=== PATIENT | male | born 1965 | race African-American/Black ===

== ENCOUNTER 2018-07-12 09:44 | Emergency (ER) | payer MEDICAID, OTHER ==
[2018-07-12 10:44] LABS: Bilirubin Moderate (Negative); Blood, Urine Moderate (Negative); Clarity TURBID (Clear); Glucose, Urine (Dipstick) Negative (Negative); Leukocyte Large (Negative); Nitrite Positive (Negative); Protein, Urine (Dipstick) 100 mg/dL (Neg-Trace); Specific Gravity, Urine 1.038 (1.002-1.036)
[2018-07-12 10:47] LABS: Bacteria/HPF 4+ HPF (None Seen); Pathc Cast-AUWi Flag 2.38 (0-2.49); RBC/HPF 21-50 HPF (0-3); Squamous Epithelial 0-3 HPF (0-3)
[2018-07-12 10:48] LABS: #Eosinphils 0.1 thou/uL (0.0-0.7); #Lymphocytes 1.6 thou/uL (1.20-3.40); #Monocytes 0.4 thou/uL (0.11-0.59); #Neutrophils 4.7 thou/uL (1.40-6.50); %Basophils 0.7 % (0.0-1.0); %Eosinophils 1.6 % (0.0-10.0); %Lymphocytes 22.6 % (21.0-51.0); %Monocytes 6.3 % (0.0-10.0); %Neutrophils 68.7 % (42.0-75.0); Hemoglobin 11.4 g/dL (14.0-18.0); Mean Corpuscular HGB CONC 32.5 g/dL (32.0-36.0); Mean Corpuscular Hemoglobin 29.8 pg (27.0-31.0); Mean Corpuscular Volume 91.5 fL (78.0-98.0); Mean Platelet Volume 7.4 fL (7.4-10.4); Platelet Count 211 thou/uL (130-400); RBC Distribution Width 12.8 % (11.5-14.5); Red Blood Cell (RBC) Count 3.82 mill/uL (4.70-6.10); White Blood Cell (WBC) Count 6.9 thou/uL (4.8-10.8)
[2018-07-12 10:51] LABS: Hyaline Casts/LPF 0-3 HYALINE CAST LPF (0-3 Hyaline)
[2018-07-12 11:07] LABS: ALT (SGPT) Less than 7 U/L (8-55); AST (SGOT) 9 U/L (5-34); Albumin 3.4 g/dL (3.5-5.0); Alkaline Phosphatase 79 U/L (40-150); Anion Gap 13 mmol/L (10-20); BUN (Urea Nitrogen) 9 mg/dL (8.4-25.7); Bilirubin, Total 1.2 mg/dL (0.2-1.2); CK (CPK) 81 U/L (30-200); Calc. Creatinine Clearance 0 mL/min (70-130); Calcium 8.9 mg/dL (7.8-10.44); Carbon Dioxide 28 mmol/L (22-29); Chloride 106 mmol/L (98-107); Estimated GFR-MDRD Greater than 90; Globulin 3.2 g/dL (2.4-3.5); Glucose 87 mg/dL (70-105); Potassium 3.1 mmol/L (3.5-5.1); Protein, Total 6.6 g/dL (6.0-8.3); Sodium 144 mmol/L (136-145)
[2018-07-12] MEDS ORDERED: Lidocaine 1% PF 5 ML VIAL ONE (12:07)
[2018-07-12] MEDS ORDERED: cefTRIAXone\\ROCEPHIN 1 GM VIAL ONE (12:07)
[2018-07-15 14:18] LABS: Chlamydia trachomatis by NAA Negative (Negative)
== END 2018-07-12 12:41 | disposition home or self-care (01) ==
LOC: ERS 09:44
DX: N39.0 Urinary tract infection, site not specified (principal); I10 Essential (primary) hypertension; F17.210 Nicotine dependence, cigarettes, uncomplicated; Z86.73 Personal history of transient ischemic attack (TIA), and cerebral infarction without residual deficits; Z79.899 Other long term (current) drug therapy
CPT/HCPCS: 36415; 80053; 81003; 81015; 82550; 85025; 87077; 87086; 87186; 87491; 87591; 96372; J0696; J2001

== ENCOUNTER 2019-02-18 11:01 | Emergency (ER) | payer OTHER ==
[2019-02-18 11:31] LABS: #Basophils 0.1 thou/uL (0.0-0.2); #Eosinphils 0.2 thou/uL (0.0-0.7); #Lymphocytes 1.7 thou/uL (1.20-3.40); #Monocytes 0.3 thou/uL (0.11-0.59); #Neutrophils 1.7 thou/uL (1.40-6.50); %Basophils 1.7 % (0.0-1.0); %Eosinophils 3.9 % (0.0-10.0); %Lymphocytes 43.2 % (21.0-51.0); %Monocytes 8.1 % (0.0-10.0); %Neutrophils 43.2 % (42.0-75.0); Hemoglobin 11.2 g/dL (14.0-18.0); Mean Corpuscular HGB CONC 34.9 g/dL (32.0-36.0); Mean Corpuscular Hemoglobin 30.3 pg (27.0-31.0); Mean Corpuscular Volume 86.8 fL (78.0-98.0); Mean Platelet Volume 8.3 fL (7.4-10.4); Platelet Count 144 thou/uL (130-400); RBC Distribution Width 12.2 % (11.5-14.5); Red Blood Cell (RBC) Count 3.69 mill/uL (4.70-6.10); White Blood Cell (WBC) Count 3.9 thou/uL (4.8-10.8)
[2019-02-18 11:57] LABS: ALT (SGPT) 13 U/L (8-55); AST (SGOT) 21 U/L (5-34); Albumin 4.1 g/dL (3.5-5.0); Alkaline Phosphatase 67 U/L (40-150); Anion Gap 10 mmol/L (10-20); BUN (Urea Nitrogen) 19 mg/dL (8.4-25.7); Bilirubin, Total 1.6 mg/dL (0.2-1.2); Calc. Creatinine Clearance 0 mL/min (70-130); Calcium 9.3 mg/dL (7.8-10.44); Carbon Dioxide 24 mmol/L (22-29); Chloride 104 mmol/L (98-107); Estimated GFR-MDRD 48; Globulin 2.7 g/dL (2.4-3.5); Glucose 112 mg/dL (70-105); Potassium 3.1 mmol/L (3.5-5.1); Protein, Total 6.8 g/dL (6.0-8.3); Sodium 135 mmol/L (136-145)
[2019-02-18] MEDS ORDERED: Potassium Chloride 20 MEQ TAB ONE (14:12)
--- NOTE | 2019-02-18 14:18 | PDOC.FPRHP ---
- History of Present Illness Chief Complaint: ACUTE RENAL FAILURE History of Present Illness: Mr. Bates is a 53 yoM who was seen at his PCP's clinic ([facility]) on for cc of fatigue. A CMP performed at that time showed Cr of 3.53 and staff attempted to reach him via phone to inform him to go the the ED for evaluation. They had difficulty reaching him and he refused to go to the ED until today. He saw his instrumentation fitter, Dr. Sutton, on 02/09/19. - Allergies/Adverse Reactions Allergies Allergy/AdvReac Type Severity Reaction Status Date / Time No Known Allergies Allergy Verified 09/24/16 15:58 - Home Medications Medication Instructions Recorded Confirmed Type Clopidogrel Bisulfate [Plavix] 75 mg PO DAILY #30 tab 04/09/16 09/24/16 Rx Atorvastatin Calcium [Lipitor] 40 mg PO DAILY #30 tab 09/28/16 Rx Pantoprazole [Protonix] 40 mg PO BID #60 tab 09/28/16 Rx hydrALAZINE [Apresoline] 25 mg PO TID #90 tab 09/28/16 Rx Amlodipine Besylate [amLODIPine 5 mg PO DAILY #30 tablet 10/01/16 Rx Besylate] - History PMHx: PSHx: FHx: Social: - Vital signs BP: [] HR: [] RR: [] Tmax: [] Pox: []% on [] Wt: [] FMR H&P: Results - Labs Result Diagrams: 02/18/19 11:21 02/18/19 11:21 Lab results: WBC 3.9 thou/uL (4.8-10.8) L 02/18/19 11:21 Hgb 11.2 g/dL (14.0-18.0) L 02/18/19 11:21 Hct 32.0 % (42.0-52.0) L 02/18/19 11:21 MCV 86.8 fL (78.0-98.0) 02/18/19 11:21 Plt Count 144 thou/uL (130-400) 02/18/19 11:21 Neutrophils % 43.2 % (42.0-75.0) 02/18/19 11:21 Sodium 135 mmol/L (136-145) L 02/18/19 11:21 Potassium 3.1 mmol/L (3.5-5.1) L 02/18/19 11:21 Chloride 104 mmol/L (98-107) 02/18/19 11:21 Carbon Dioxide 24 mmol/L (22-29) 02/18/19 11:21 BUN 19 mg/dL (8.4-25.7) 02/18/19 11:21 Creatinine 1.78 mg/dL (0.7-1.3) H 02/18/19 11:21 Glucose 112 mg/dL (70-105) H 02/18/19 11:21 Calcium 9.3 mg/dL (7.8-10.44) 02/18/19 11:21 Total Bilirubin 1.6 mg/dL (0.2-1.2) H 02/18/19 11:21 AST 21 U/L (5-34) 02/18/19 11:21 ALT 13 U/L (8-55) 02/18/19 11:21 Alkaline Phosphatase 67 U/L (40-150) 02/18/19 11:21 Serum Total Protein 6.8 g/dL (6.0-8.3) 02/18/19 11:21 Albumin 4.1 g/dL (3.5-5.0) 02/18/19 11:21 FMR H&P: Upper Level - Plan Date/Time: 02/18/19 1416 I, [], have evaluated this patient and agree with findings/plan as outlined by sourcing intern resident. Pertinent changes/additions are listed here.
--- NOTE | 2019-02-18 15:08 | PDOC.FPRHP ---
- History of Present Illness Chief Complaint: abnormal labs History of Present Illness: Patient was seen in our clinic by Dr. Saleh on 02/10/19 for the cc of fatigue. He had labs drawn which revealed an elevated creatinine of 3.53. Multiple attempts were made to contact him to inform him to go to the ED to be evaluated, however he was out of town/did not answer and he did not. He presented to the ED today and repeat labs were drawn. His kidney function has significantly improved. His cr is 1.78 today. Of note, he had seen his endband cutter hand the day prior (02/09) and Dr. Sutton had reduced his carvedilol from 12.5 bid to 6.25 bid which probably played a role in his ELIZ. The medicine team, Jakob and José Luis, evaluated the patient and determined that he does not need to be admitted for observation. He is improving, he is symptom free, and is orally rehydrating. He agrees to a follow up appt on Friday (02/23) at 1400. - Allergies/Adverse Reactions Allergies Allergy/AdvReac Type Severity Reaction Status Date / Time No Known Allergies Allergy Verified 09/24/16 15:58 - Home Medications Medication Instructions Recorded Confirmed Type Clopidogrel Bisulfate [Plavix] 75 mg PO DAILY #30 tab 04/09/16 09/24/16 Rx Atorvastatin Calcium [Lipitor] 40 mg PO DAILY #30 tab 09/28/16 Rx Pantoprazole [Protonix] 40 mg PO BID #60 tab 09/28/16 Rx hydrALAZINE [Apresoline] 25 mg PO TID #90 tab 09/28/16 Rx Amlodipine Besylate [amLODIPine 5 mg PO DAILY #30 tablet 10/01/16 Rx Besylate] - History PMHx: PSHx: FHx: Social: - Vital signs BP: [] HR: [] RR: [] Tmax: [] Pox: []% on [] Wt: [] FMR H&P: Results - Labs Result Diagrams: 02/18/19 11:21 02/18/19 11:21 Lab results: WBC 3.9 thou/uL (4.8-10.8) L 02/18/19 11:21 Hgb 11.2 g/dL (14.0-18.0) L 02/18/19 11:21 Hct 32.0 % (42.0-52.0) L 02/18/19 11:21 MCV 86.8 fL (78.0-98.0) 02/18/19 11:21 Plt Count 144 thou/uL (130-400) 02/18/19 11:21 Neutrophils % 43.2 % (42.0-75.0) 02/18/19 11:21 Sodium 135 mmol/L (136-145) L 02/18/19 11:21 Potassium 3.1 mmol/L (3.5-5.1) L 02/18/19 11:21 Chloride 104 mmol/L (98-107) 02/18/19 11:21 Carbon Dioxide 24 mmol/L (22-29) 02/18/19 11:21 BUN 19 mg/dL (8.4-25.7) 02/18/19 11:21 Creatinine 1.78 mg/dL (0.7-1.3) H 02/18/19 11:21 Glucose 112 mg/dL (70-105) H 02/18/19 11:21 Calcium 9.3 mg/dL (7.8-10.44) 02/18/19 11:21 Total Bilirubin 1.6 mg/dL (0.2-1.2) H 02/18/19 11:21 AST 21 U/L (5-34) 02/18/19 11:21 ALT 13 U/L (8-55) 02/18/19 11:21 Alkaline Phosphatase 67 U/L (40-150) 02/18/19 11:21 Serum Total Protein 6.8 g/dL (6.0-8.3) 02/18/19 11:21 Albumin 4.1 g/dL (3.5-5.0) 02/18/19 11:21 FMR H&P: A/P - Plan DISCHARGE HOME FROM ED WITH FOLLOW UP APPT IN CLINIC 02/23 AT 2 PM. FMR H&P: Upper Level - Plan Date/Time: 02/18/19 374 I, [], have evaluated this patient and agree with findings/plan as outlined by merchandising intern resident. Pertinent changes/additions are listed here. Addendum - Attending - Attending Attestation Date/Time: 02/18/19 8039 I personally discussed the management with Dr. Robert and Tucker. I agree with the History, Examination, Assessment and Plan documented above with any addition or exceptions noted below. Patient is recovering, particularly his renal function, which was the main concern, and does not require hospitalization.
== END 2019-02-18 15:33 | disposition home or self-care (01) ==
LOC: ERS 11:01
DX: N17.9 Acute kidney failure, unspecified (principal); E87.6 Hypokalemia; I10 Essential (primary) hypertension; F17.210 Nicotine dependence, cigarettes, uncomplicated; Z79.899 Other long term (current) drug therapy; Z86.73 Personal history of transient ischemic attack (TIA), and cerebral infarction without residual deficits; Z79.01 Long term (current) use of anticoagulants
CPT/HCPCS: 36415; 80053; 85025; 93005; 96360

== ENCOUNTER 2019-09-14 06:01 | Day surgery (SDC) | payer OTHER ==
[2019-09-10 11:25] VITALS: BMI 18.8
[2019-09-14] MEDS ORDERED: Heparin 10,000 UNITS/1 ML VIAL ONE (06:36)
[2019-09-14] MEDS ORDERED: Lidocaine 1% (PF) 30 ML VIAL ONE (06:36)
[2019-09-14 06:44] LABS: #Eosinphils 0.2 thou/uL (0.0-0.7); #Monocytes 0.3 thou/uL (0.11-0.59); #Neutrophils 2.5 thou/uL (1.40-6.50); %Basophils 0.8 % (0.0-1.0); %Eosinophils 4.6 % (0.0-10.0); %Lymphocytes 39.2 % (21.0-51.0); %Monocytes 6.7 % (0.0-10.0); %Neutrophils 48.7 % (42.0-75.0); Hemoglobin 13.1 g/dL (14.0-18.0); Mean Corpuscular HGB CONC 34.2 g/dL (32.0-36.0); Mean Corpuscular Hemoglobin 30.7 pg (27.0-31.0); Mean Corpuscular Volume 89.9 fL (78.0-98.0); Mean Platelet Volume 8.4 fL (7.4-10.4); Platelet Count 139 thou/uL (130-400); RBC Distribution Width 12.1 % (11.5-14.5); Red Blood Cell (RBC) Count 4.27 mill/uL (4.70-6.10); White Blood Cell (WBC) Count 5.1 thou/uL (4.8-10.8)
[2019-09-14 07:05] LABS: Anion Gap 12 mmol/L (10-20); BUN (Urea Nitrogen) 18 mg/dL (8.4-25.7); Calc. Creatinine Clearance 42 mL/min (70-130); Calcium 9.6 mg/dL (7.8-10.44); Carbon Dioxide 30 mmol/L (22-29); Chloride 103 mmol/L (98-107); Estimated GFR-MDRD 57; Glucose 83 mg/dL (70-105); Potassium 3.4 mmol/L (3.5-5.1); Sodium 142 mmol/L (136-145)
[2019-09-14] MEDS ORDERED: Diazepam 5 MG TAB ONE (07:36)
[2019-09-14] MEDS ORDERED: Diazepam 5 MG TAB PO SCH (07:45)
[2019-09-14] MEDS ORDERED: Sodium Chloride 0.9% 1,000 ML IV SCH (07:45)
[2019-09-14] MEDS ORDERED: Fentanyl 100 MCG/2 ML VIAL ONE (08:09)
[2019-09-14] MEDS ORDERED: Midazolam HCl 2 mg/2 ml Vial ONE (08:10)
[2019-09-14] MEDS ORDERED: Nitroglycerin 100MG/250ML BOT 250 ML ONE (08:38)
[2019-09-14] MEDS ORDERED: Iopamidol 370 76% 100 ML VIAL ONE (09:13)
== END 2019-09-14 14:40 | disposition home or self-care (01) ==
LOC: CCL 06:01
PROVIDERS: ATTEND Internal Medicine Cardiovascular Disease
PROC: B2111ZZ Fluoroscopy of Multiple Coronary Arteries using Low Osmolar Contrast (ICD-10-PCS; principal; 2019-09-14)
PROC: 4A023N7 Measurement of Cardiac Sampling and Pressure, Left Heart, Percutaneous Approach (ICD-10-PCS; principal; 2019-09-14)
DX: R94.39 Abnormal result of other cardiovascular function study (principal); R07.89 Other chest pain; I48.0 Paroxysmal atrial fibrillation; I10 Essential (primary) hypertension; E78.00 Pure hypercholesterolemia, unspecified; E78.2 Mixed hyperlipidemia; I49.5 Sick sinus syndrome; F17.210 Nicotine dependence, cigarettes, uncomplicated; Z86.73 Personal history of transient ischemic attack (TIA), and cerebral infarction without residual deficits; Z79.02 Long term (current) use of antithrombotics/antiplatelets; Z79.899 Other long term (current) drug therapy; Z95.0 Presence of cardiac pacemaker
CPT/HCPCS: 76942; 80048; 85025; 93458; 99152; C1769; J1644; J2001; J2250; J3010; Q9967

== ENCOUNTER 2021-12-07 17:16 | Emergency (ER) | payer OTHER | END 2021-12-07 20:55 | disposition home or self-care (01) | LOC: ERS 17:16 | DX: S50.01XA Contusion of right elbow, initial encounter (principal); I10 Essential (primary) hypertension; F17.210 Nicotine dependence, cigarettes, uncomplicated; W22.03XA Walked into furniture, initial encounter; Z95.0 Presence of cardiac pacemaker; Z86.73 Personal history of transient ischemic attack (TIA), and cerebral infarction without residual deficits; Z87.19 Personal history of other diseases of the digestive system; Z79.899 Other long term (current) drug therapy ==

== ENCOUNTER 2022-10-18 11:22 | Outpatient (CLI) | payer OTHER | END 2022-10-18 11:23 | disposition home or self-care (01) | LOC: BICRAD 11:22 | PROVIDERS: ATTEND Family Medicine | DX: M25.561 Pain in right knee (principal) ==